=== PATIENT | male | born 1995 | race Caucasian/White ===

== ENCOUNTER 2018-05-07 16:06 | Emergency (ER) | payer SELFPAY ==
[2018-05-07] MEDS: LORAZEPAM 0.5 MG TAB PO (17:44)
[2018-05-07] MEDS: IBUPROFEN 600 MG TAB PO (17:44)
== END 2018-05-07 18:52 | disposition home or self-care (01) ==
LOC: FTE 16:06
DX: M54.2 Cervicalgia (principal); M79.1 Myalgia
CPT/HCPCS: 71046; 72040; 99284-25